=== PATIENT | male | born 1965 | race Two or more races ===

== ENCOUNTER 2017-09-20 06:53 | Emergency (ER) | payer OTHER ==
[2017-09-20 07:30] VITALS: BP 148/95; PULSE 73; TEMP 98.1; BMI 37.8
--- NOTE | 2017-09-20 08:06 | PDOC ---
History of Present Illness - General Chief Complaint: Sore Throat Stated Complaint: THROAT PAIN Time Seen by Provider: 09/20/17 08:03 History Source: Patient Exam Limitations: No Limitations - History of Present Illness Initial Comments: 09/20/17 08:15 My chief complaint: Sore throat History of present illness: Patient is a 52-year-old male with a history of non- insulin-dependent diabetes here today complaining of a sore throat since last night. Patient denies any fever. Patient denies any difficulty swallowing except for soreness of throat, is not drooling. Patient denies any difficulty breathing. Patient denies any recent sick contacts. Patient denies nasal congestion, cough, nausea, vomiting or diarrhea. Patient denies any recent travel. Timing/Duration: getting worse Severity: mild Associated Symptoms: reports: other (sore throat ) Past History - Past Medical History Allergies/Adverse Reactions: Allergies Allergy/AdvReac Type Severity Reaction Status Date / Time No Known Allergies Allergy Verified 09/20/17 07:23 Home Medications: Ambulatory Orders Metformin HCl 500 mg PO BID 09/20/17 Diabetes: Yes - Suicide/Smoking/Psychosocial Hx Smoking History: Former smoker Have you smoked in the past 12 months: No If you are a former smoker, when did you quit?: 15 yrs Information on smoking cessation initiated: No Hx Alcohol Use: Yes (socially) Drug/Substance Use Hx: No Substance Use Type: None Review of Systems - Review of Systems Able to Perform ROS?: Yes Constitutional: No: Symptoms Reported HEENTM: Yes: Throat Pain Respiratory: No: Symptoms reported Cardiac (ROS): No: Symptoms Reported ABD/GI: No: Symptoms Reported : No: Symptoms Reported Musculoskeletal: No: Symptoms Reported Integumentary: No: Symptoms Reported Neurological: No: Symptoms reported *Physical Exam - Vital Signs Last Vital Signs Temp Pulse Resp BP Pulse Ox 98.1 F 73 18 148/95 100 09/20/17 07:23 09/20/17 07:23 09/20/17 07:23 09/20/17 07:23 09/20/17 07:23 - Physical Exam General Appearance: Yes: Appropriately Dressed HEENT: positive: TMs Normal, Pharyngeal Erythema, Tonsillar Erythema (with no tonsillar deviation), Other (no trismus ). negative: Tonsillar Exudate Neck: positive: Lymphadenopathy (L). negative: Lymphadenopathy (R) Respiratory/Chest: positive: Lungs Clear, Normal Breath Sounds. negative: Chest Tender, Respiratory Distress Cardiovascular: positive: Regular Rhythm, Regular Rate, S1, S2 Integumentary: positive: Normal Color Neurologic: positive: Alert, Responsive Medical Decision Making - Medical Decision Making 09/20/17 08:16 Patient is a 52-year-old male with a history of [id number]-[id number] diabetes here today complaining of a sore throat since last night. Patient denies any fever. Patient denies any difficulty swallowing except for soreness of throat, is not drooling. Patient denies any difficulty breathing. Patient denies any recent sick contacts. Patient denies nasal congestion, cough, nausea, vomiting or diarrhea. Patient denies any recent travel. pharyngitis/tonsillitis r/o Strep throat PLAN: throat C A& S rapid + for Beta Hemolytic strep gRoup A benzathine penicillin G 1.2 IM now 09/20/17 09:03 09/20/17 09:06 *DC/Admit/Observation/Transfer Diagnosis at time of Disposition: Strep tonsillitis - Discharge Dispostion Disposition: HOME Condition at time of disposition: Stable - Patient Instructions Additional Instructions: Drink a lot a fluids and rest May use Cepacol throat lozenges or to help decrease discomfort of throat and ibuprofen as needed as directed by vault person for pain/fever Return to emergency room if symptoms worsen or new symptoms develop any difficulty swallowing Today your throat culture was positive for strep throat Patient voiced understanding of discharge instructions and all questions were answered Thank You for choosing [facility] emergency room for your medical care today - Post Discharge Activity Forms/Work/School Notes: Back to Work
[2017-09-20] MEDS ORDERED: PENICILLIN G BENZATHINE 1,200,000 UNIT/2 ML PFS IM ONE (09:05)
[2017-09-20] MEDS ORDERED: PENICILLIN G BENZATHINE 2,400,000 UNIT/4 ML PFS ONE (09:08)
== END 2017-09-20 09:32 | disposition home or self-care (01) ==
LOC: JER 06:53 → JERFT 06:53
DX: J02.0 Streptococcal pharyngitis (principal); B95.0 Streptococcus, group A, as the cause of diseases classified elsewhere; E11.9 Type 2 diabetes mellitus without complications; Z79.84 Long term (current) use of oral hypoglycemic drugs
CPT/HCPCS: 87070; 87430; 96372; 99281-25

== ENCOUNTER 2017-09-21 00:01 | Emergency (ER) | payer OTHER ==
[2017-09-21 00:13] VITALS: BP 139/82; PULSE 122; TEMP 99.5; BMI 37.8
--- NOTE | 2017-09-21 00:26 | PDOC ---
History of Present Illness - General Chief Complaint: Sore Throat Stated Complaint: DIFFICULTY BREATHING Time Seen by Provider: 09/21/17 00:13 History Source: Patient Exam Limitations: No Limitations - History of Present Illness Initial Comments: 09/21/17 00:28 Pt. is a 52 y/o male w/ PMH of NIDDM who presents to the ED tonight c/o a choking sensation. Pt. was seen in our ED yesterday morning (09/20/17) c/o sore throat. He was found to have strep tonsilitis. Pt. was given a bicillin shot in the department and sent home with instructions to use throat lozenges and ibuprofen. Pt states that his pain has not gotten any better since the shot. He states he took 200mg of ibuprofen at 21:30 on 09/20/17. States that he now feels feverish. Denies chills, nausea, vomiting, cough, rhinorrhea, nausea, vomiting, diarrhea. Past History - Travel Traveled outside of the country in the last 30 days: No Close contact w/someone who was outside of country & ill: No - Past Medical History Allergies/Adverse Reactions: Allergies Allergy/AdvReac Type Severity Reaction Status Date / Time No Known Allergies Allergy Verified 09/21/17 00:13 Home Medications: Ambulatory Orders Metformin HCl 500 mg PO BID 09/20/17 Ibuprofen 800 mg PO TID #21 tablet 09/21/17 Prednisone [Deltasone -] 40 mg PO DAILY #9 tablet 09/21/17 Diabetes: Yes - Suicide/Smoking/Psychosocial Hx Smoking History: Never smoked Have you smoked in the past 12 months: No If you are a former smoker, when did you quit?: 15 yrs Information on smoking cessation initiated: No Hx Alcohol Use: Yes (socially) Drug/Substance Use Hx: No Substance Use Type: None Review of Systems - Review of Systems Able to Perform ROS?: Yes Comments:: 09/21/17 00:31 CONSTITUTIONAL: Present: Subjective fevers. Absent: chills, diaphoresis, generalized weakness, malaise, loss of appetite HEENT: Present: Sore throat, difficulty swallowing, choking sensation. Absent: rhinorrhea, nasal congestion, throat swelling, mouth swelling, ear pain, eye pain, visual changes CARDIOVASCULAR: Absent: chest pain, loss of consciousness, palpitations, irregular heart rate, peripheral edema RESPIRATORY: Absent: cough, shortness of breath, dyspnea with exertion, orthopnea, wheezing, stridor, hemoptysis GASTROINTESTINAL: Absent: abdominal pain, abdominal distension, nausea, vomiting, diarrhea, constipation, melena, hematochezia GENITOURINARY: Absent: dysuria, frequency, urgency, hesitancy, hematuria, flank pain, genital pain MUSCULOSKELETAL: Absent: myalgia, arthralgia, joint swelling SKIN: Absent: rash, itching, pallor HEMATOLOGIC/IMMUNOLOGIC: Absent: easy bleeding, easy bruising, lymphadenopathy, frequent infections ENDOCRINE: Absent: unexplained weight gain, unexplained weight loss, heat intolerance, cold intolerance NEUROLOGIC: Absent: headache, focal weakness or paresthesias, dizziness, unsteady gait, seizure, mental status changes, bladder or bowel incontinence PSYCHIATRIC: Absent: anxiety, depression, suicidal or homicidal ideation, hallucinations. Is the patient limited [place] proficient: No *Physical Exam - Vital Signs Last Vital Signs Temp Pulse Resp BP Pulse Ox 99.5 F 122 H 20 139/82 98 09/21/17 00:11 09/21/17 00:11 09/21/17 00:11 09/21/17 00:11 09/21/17 00:11 - Physical Exam Comments: 09/21/17 00:32 GENERAL: Well developed, well nourished. Awake and alert. No acute distress. HEENT: Normocephalic, atraumatic. PERRLA, EOMI. No conjunctival pallor. Sclera are non- icteric. Moist mucous membranes. 2+ tonsils with no exudate. No tonsillar deviation. NECK: Supple. Full ROM. No JVD. Carotid pulses 2+ and symmetric, without bruits. No thyromegaly. (+) L lymphadenopathy, (-) LAD on the right. CARDIOVASCULAR: Tachycardic. Regular rhythm. No murmurs, rubs, or gallops. Distal pulses are 2+ and symmetric. PULMONARY: No evidence of respiratory distress. Lungs clear to auscultation bilaterally. No wheezing, rales or rhonchi. ABDOMINAL: Soft. Non-tender. Non-distended. No rebound or guarding. No organomegaly. Normoactive bowel sounds. MUSCULOSKELETAL Normal range of motion at all joints. No bony deformities or tenderness. No CVA tenderness. EXTREMITIES: No cyanosis. No clubbing. No edema. No calf tenderness. SKIN: Warm and dry. Normal capillary refill. No rashes. No jaundice. NEUROLOGICAL: Alert, awake, appropriate. Cranial nerves 2-12 intact. No deficits to light touch and temperature in face, upper extremities and lower extremities. No motor deficits in the in face, upper extremities and lower extremities. Normoreflexic in the upper and lower extremities. Normal speech. Toes are down- going bilaterally. Gait is normal without ataxia. PSYCHIATRIC: Cooperative. Good eye contact. Appropriate mood and affect. Medical Decision Making - Medical Decision Making 09/21/17 01:21 Pt. is a 52 y/o male with PHM of HTN who presents to the ED with sore throat. Pt. was seen earlier today by our staff and diagnosed with strep throat. He was given a shot of bicillin and discharged. Explained to pt that he will not feel better right away and gave more ibuprofen. Also treated with prednisone for the swelling. Given instructions for supportive care. Pt. understands all discharge instructions and all questions were answered. Pt. given strict return precautions. *DC/Admit/Observation/Transfer Diagnosis at time of Disposition: Strep tonsillitis - Discharge Dispostion Disposition: HOME Condition at time of disposition: Good Admit: No - Prescriptions Prescriptions: Prednisone [Deltasone -] 40 mg PO DAILY #9 tablet Ibuprofen 800 mg PO TID #21 tablet - Referrals Referrals: Valentín Arriaza MD [Staff Physician] - - Patient Instructions Printed Discharge Instructions: DI for Strep Throat Additional Instructions: You have strep throat. You were given an antibiotic shot earlier today. This shot takes approximately 24 hours to start working. Take 800mg ibuprofen every 8 hours as needed for pain. You were also prescribed steroids. Take the medication as prescribed. Continue to use the throat lozenges to help with your symptoms. Salt water gargles and hot tea may help to reduce your symptoms. Sleep propped up on a few pillows until your symptoms resolve to help with your breathing at night time. You may follow up with the ENT (ears nose throat) doctor if you do not feel better in the next few days. Attached is a referral. Return to the ED if your pain is not getting better in 2-3 days, if you develop weakness, fatigue, increased difficulty swallowing, or have any changes in your symptoms. Usted tiene amigdalitis estreptoccica. Le dieron un antibitico inyectado el d a de hoy. Esta tamika dura aproximadamente 24 horas para comenzar a funcionar. [place] 800 mg de ibuprofeno cada 8 horas segn sea necesario para el dolor. Tambi n se te recetaron esteroides. [place] la medicacin segn lo prescrito. Contine usando las pastillas para la garganta para ayudar con alyce sntomas. Grgaras de agua salada y t caliente pueden ayudar a reducir alyce sntomas. Duerma apoyado sobre unas almohadas hasta que alyce sntomas se resuelvan para ayudar con rivas respiracin breann la noche. Puede hacer un seguimiento con el otorrinolaring logo (ORL) si no se siente mejor en los prximos hirsch. Adjunto hay norma referencia. Regrese al departamento de emergencias si rivas dolor no mejora en 2 a 3 hirsch, si desarrolla debilidad, fatiga, dificultad para tragar o cambios en los sntomas. Print Language: LIBY[place]
[2017-09-21] MEDS ORDERED: KETOROLAC TROMETHAMINE 60 MG/2 ML VIAL IM ONE (00:27)
[2017-09-21] MEDS ORDERED: predniSONE 20 MG TABLET (UD) PO ONE (00:27)
[2017-09-21] MEDS ORDERED: KETOROLAC TROMETHAMINE 60 MG/2 ML VIAL ONE (01:08)
[2017-09-21] MEDS ORDERED: predniSONE 20 MG TABLET (UD) ONE (01:08)
== END 2017-09-21 01:46 | disposition home or self-care (01) ==
LOC: JER 00:01
PROC: 3E0233Z Introduction of Anti-inflammatory into Muscle, Percutaneous Approach (ICD-10-PCS; principal; 2017-09-21)
DX: J03.00 Acute streptococcal tonsillitis, unspecified (principal); B95.4 Other streptococcus as the cause of diseases classified elsewhere
CPT/HCPCS: 96372; 99281-25

== ENCOUNTER 2021-12-04 22:46 | Emergency (ER) | payer OTHER ==
[2021-12-04 23:41] VITALS: BP 114/66; PULSE 81; TEMP 99.8; BMI 34.9
[2021-12-05] MEDS ORDERED: ACETAMINOPHEN 500 MG TABLET (FP) PO ONE (01:54)
[2021-12-05] MEDS ORDERED: ACETAMINOPHEN 500 MG TABLET (FP) ONE (02:24)
[2021-12-05 02:48] LABS: BASO % 0.2 % (0-2.0); EOS % 0.2 % (0-4.5); HEMATOCRIT 36.5 % (35.4-49); HEMOGLOBIN 12.8 GM/dL (11.7-16.9); LYMPH % 18.8 % (8-40); MCH 29.7 pg (25.7-33.7); MEAN PLT VOLUME 7.5 fl (7.5-11.1); MONO % 7.1 % (3.8-10.2); NEUT % 73.7 % (42.8-82.8); PLATELET COUNT 194 10^3/uL (134-434); RDW 13.1 % (11.9-15.9); WHITE BLOOD COUNT 5.3 K/mm3 (4.0-10.0)
[2021-12-05 02:57] LABS: INR 1.06 (0.83-1.09); PROTHROMBIN TIME (PATIENT) 12.2 SEC (9.7-13.0)
[2021-12-05 03:00] LABS: ACTIVATED PTT 37.4 SECONDS (25.2-36.5)
[2021-12-05 03:05] LABS: CHLORIDE 104 mmol/L (98-107)
[2021-12-05 03:09] LABS: ALBUMIN 3.1 g/dl (3.4-5.0); CALCIUM 8.2 mg/dL (8.5-10.1); CO2 26 mmol/L (21-32)
[2021-12-05 03:10] LABS: BLOOD UREA NITROGEN 15.1 mg/dL (7-18); GLUCOSE,RANDOM 153 mg/dL (74-106); MAGNESIUM 2.3 mg/dL (1.8-2.4)
[2021-12-05 03:12] LABS: CREATININE 0.7 mg/dL (0.55-1.3); SGOT/AST 32 U/L (15-37)
[2021-12-05 03:13] LABS: SGPT/ALT 31 U/L (13-61)
[2021-12-05 03:14] LABS: BILIRUBIN,TOTAL 0.3 mg/dL (0.2-1); TOT PROT 6.9 g/dl (6.4-8.2)
[2021-12-05 03:15] LABS: ALK PHOS 83 U/L (45-117)
[2021-12-05 03:32] LABS: ANION GAP 7 MMOL/L (8-16); SODIUM 136 mmol/L (136-145)
== END 2021-12-05 05:43 | disposition home or self-care (01) ==
LOC: JER 22:46
DX: R05.1 Acute cough (principal)
CPT/HCPCS: 36415; 71275-TC; 80053; 82550; 83735; 84484; 85025; 85610; 85730; 93005; 93010; 99285-25; C9803-CS; U0003; U0005

== ENCOUNTER 2021-12-07 12:54 | Emergency (ER) | payer OTHER ==
[2021-12-07 13:27] VITALS: TEMP 98.3; BMI 34.0
[2021-12-07] MEDS ORDERED: ALBUTEROL SO4 2.5/IPRATROPIUM 0.5 INH SOL 3 ML VIAL.NEB. NEB ONE ×2 (14:41→15:47)
[2021-12-07 15:39] VITALS: BP 101/59; PULSE 68
[2021-12-07 16:03] LABS: BASO % 0.5 % (0-2.0); EOS % 1.2 % (0-4.5); HEMATOCRIT 34.1 % (35.4-49); HEMOGLOBIN 12.2 GM/dL (11.7-16.9); MCH 30.2 pg (25.7-33.7); MCHC 35.7 g/dl (32.0-35.9); MEAN CELL VOLUME 84.5 fl (80-96); MEAN PLT VOLUME 7.4 fl (7.5-11.1); MONO % 12.2 % (3.8-10.2); NEUT % 58.1 % (42.8-82.8); PLATELET COUNT 305 10^3/uL (134-434); RBC 4.04 M/mm3 (4.00-5.60); WHITE BLOOD COUNT 4.9 K/mm3 (4.0-10.0)
[2021-12-07 16:19] LABS: CHLORIDE 105 mmol/L (98-107); SODIUM 139 mmol/L (136-145)
[2021-12-07 16:21] LABS: CALCIUM 8.6 mg/dL (8.5-10.1)
[2021-12-07 16:22] LABS: ALBUMIN 2.8 g/dl (3.4-5.0); ANION GAP 6 MMOL/L (8-16); BLOOD UREA NITROGEN 9.5 mg/dL (7-18); CO2 28 mmol/L (21-32); GLUCOSE,RANDOM 119 mg/dL (74-106)
[2021-12-07 16:25] LABS: CREATININE 0.5 mg/dL (0.55-1.3); SGOT/AST 30 U/L (15-37); SGPT/ALT 40 U/L (13-61)
[2021-12-07 16:27] LABS: BILIRUBIN,TOTAL 0.4 mg/dL (0.2-1); TOT PROT 6.7 g/dl (6.4-8.2)
[2021-12-07 16:28] LABS: ALK PHOS 82 U/L (45-117)
== END 2021-12-07 17:23 | disposition home or self-care (01) ==
LOC: JER 12:54
PROC: 3E0F7GC Introduction of Other Therapeutic Substance into Respiratory Tract, Via Natural or Artificial Opening (ICD-10-PCS; principal; 2021-12-07)
DX: R06.02 Shortness of breath (principal)
CPT/HCPCS: 36415; 80053; 82550; 84484; 85025; 93005; 93010; 99284-25